=== PATIENT | female | born 1935 | race Caucasian/White ===

== ENCOUNTER → 2017-03-21 | Day surgery (SDC) | payer MEDICARE ==
[~2017-03-21] VITALS: Ht 61 cm; Wt 5.0 kg
[~2017-03-21] MED LIST: ACETAMINOPHEN 1000 MG/100 ML 0 ML IV ONE; AMLO10TA2 PO; BUPIVACAINE HCL PF 0.5% 30 ML VIAL ONE; BUPIVACAINE/EPINEPHRINE 0.5% 50 ML VIAL ONE; CHLORHEXIDINE GLUCONATE 2 % 1 PACK (2 CLOTHS) TOPICAL PRN; DO NOT ADM ANY ANTICOAGULANT DRUGS PRN; FAMOTIDINE 20 MG/2 ML VIAL ONE; GABA600T PO; GLYCOPYRROLATE 0.2 MG/ML VIAL IV ONE; GLYCOPYRROLATE 0.4 MG/2 ML VIAL IV ONE; HEPARIN SODIUM - IV 10,000 UNITS/10 ML VIAL ONE; HEPARIN SODIUM - SQ 10,000 UNITS/ML VIAL ONE; INSULIN HUMAN REGULAR 1,000 UNITS/10 ML VIAL SQ PRN; IOHEXOL 300 MG/ML 100 ML BTL (for Rad CT) OTHER ONE; IOHEXOL 350 MG/ML 100 ML BTL (for RAD DIAG) OTHER ONE; LACTATED RINGER'S 1000 ML IV PRN; LACTATED RINGER'S 500 ML INJ IV SCH; MAGN400T2 PO; MAGNESIUM SULFATE 1 GM/100 ML IV PRN; METOPROLOL TARTRATE 25 MG TAB PO PRN; MULT-365 PO; MULT10CA PO; NEOSTIGMINE 3 MG/3 ML SYR IV ONE; NORMOSOL R INJ 2,000 ML IV ONE; ONDANSETRON HCL 4 MG/2 ML VIAL IV PUSH ONE; ONDANSETRON HCL 4 MG/2 ML VIAL IV PUSH PRN; PHENYLEPH/NS 1000 MCG/10 ML SYR IV ONE; POTASSIUM CHLOR 20 MEQ 100 ML x 2 BAGS IV PRN; POTASSIUM CHLOR 20 MEQ/100 ML x 1 BAG IV PRN; POTASSIUM PHOSPHATE 21 MMOL/NS 250 ML IV PRN; POVIDONE IODINE 5% (ANTISEPSIS KIT) 4 APPLICATIONS EACH NARE PRN; PROPOFOL 200 MG/20 ML AMP IV ONE; PROTAMINE SULFATE 50 MG/5 ML VIAL ONE; REFRDRO EACH EYE; ROCURONIUM INJ 50 MG/5 ML VIAL IV ONE; SODIUM CHLORID 0.9% 500 ML IV PRN; ceFAZolin 1,000 MG/NS 100 ML IV SCH; ePHEDrine/NS 25 MG/5 ML SYR IV ONE
[2017-03-21 06:52] LABS: AUTOMATED NEUTROPHIL # 4.7 TH/MM3 (1.8-7.7); BASOPHIL # 0.1 TH/MM3 (0-0.2); BASOPHIL % 0.8 % (0.0-2.0); EOSINOPHIL # 0.3 TH/MM3 (0-0.4); EOSINOPHIL % 4.2 % (0.0-4.0); HEMATOCRIT 44.3 % (35.0-46.0); HEMO FLAGS DIFF FINAL; LYMPH % 21.1 % (9.0-44.0); LYMPHOCYTE # 1.5 TH/MM3 (1.0-4.8); MEAN CELL VOLUME 90.6 FL (80.0-100.0); MEAN CORPUSCULAR HEMOGLOBIN 30.7 PG (27.0-34.0); MEAN CORPUSCULAR HGB CONC 33.8 % (32.0-36.0); MONO % 9.8 % (0.0-8.0); NEUT % 64.1 % (16.0-70.0); PLATELET COUNT 226 TH/MM3 (150-450); RED BLOOD COUNT 4.89 MIL/MM3 (4.00-5.30); RED CELL DISTRIBUTION WIDTH 14.8 % (11.6-17.2); WHITE BLOOD COUNT 7.3 TH/MM3 (4.0-11.0)
[2017-03-21 07:01] LABS: PROTHROMBIN TIME - PATIENT 11.1 SEC (9.8-11.6)
[2017-03-21 07:08] LABS: POTASSIUM 4.3 MEQ/L (3.5-5.1)
[2017-03-21 13:00] VITALS: BP 116/63; PULSE 60; RESP 18; TEMP 97.7; O2SAT 92
--- NOTE | 2017-03-21 14:08 | EKG ---
Date Performed: 03/21/2017 Time Performed: 06:48:53 PTAGE: 81 years EKG: SINUS BRADYCARDIA BORDERLINE ECG Compared to prior tracing no significant change PREVIOUS TRACING : 01/06/2014 18.57 DOCTOR: Howadr Sosa Interpretating Date/Time 03/21/2017 14:06:14
--- NOTE | 2017-03-22 12:31 | MP ---
cc: JEANETTE PRASAD M.D., JEFFREY DATE OF SURGERY 03/21/2017 PREOPERATIVE DIAGNOSIS Critical right lower extremity ischemia. POSTOPERATIVE DIAGNOSIS Critical right lower extremity ischemia. OPERATIVE PROCEDURE Aortofemoral arteriogram. SURGEON Jeanette Prasad MD STERILE PROCESSING TECHNICIAN GAMA [place] ANESTHESIA Local MAC DESCRIPTION OF PROCEDURE With the patient in the supine position and under IV sedation, the abdomen, both groins and thighs were prepped with Betadine and draped in a sterile fashion. Following a protocol time-out, the skin and subcutaneous tissue surrounding the right common femoral access site was infiltrated with 0.5% Marcaine with epinephrine. Utilizing ultrasound guidance, a micro puncture access of the right common femoral artery was accomplished. The micro sheath was advanced over the Nitinol guidewire. An advantage guidewire was then navigated under fluoroscopic guidance into the sub renal aorta and the micro sheath exchanged for a 5-Bolivian hemostatic sheath. An Omni catheter was delivered into the subrenal aorta. 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 The common and external iliac arteries were concentrically calcified and moderately diseased throughout but devoid of any hemodynamic significant appearing inflow stenoses. The left common femoral artery was also widely patent into a profunda and SFA. Below the common femoral level on the right side, the SFA occluded at its origin and a robust right profunda collateralized and reconstituted the SFA at the adductor level. The popliteal, posterior tibial and peroneal were patent to the ankle, the anterior tibial occluded throughout. On the left side, the SFA and profunda were patent, although a focal high-grade stenosis was present within the SFA at the adductor level. The popliteal had three-vessel runoff to the left foot maintained. 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 The preoperative CT angiogram had suggested the right SFA was patent to the adductor level where a segmental occlusion was present. 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 This lady will require a right common femoral endarterectomy and at that time, options of either attempted at SFA endovascular reconstitution verses conventional in situ femoral-popliteal bypass. The right femoral sheath was removed and hemostasis achieved with compression. There were no operative complications. The patient returned to the CPU in stable condition having tolerated the procedure well. MD ORALIA Small/RANDY /8:28 AM /12:14 PM
== END | disposition home or self-care (01) ==
LOC: HSDC 05:54
PROVIDERS: ATTEND Surgery Vascular Surgery
DX: I70.211 Atherosclerosis of native arteries of extremities with intermittent claudication, right leg (principal); I70.92 Chronic total occlusion of artery of the extremities; I10 Essential (primary) hypertension; E78.5 Hyperlipidemia, unspecified; G62.9 Polyneuropathy, unspecified; J44.9 Chronic obstructive pulmonary disease, unspecified; F17.210 Nicotine dependence, cigarettes, uncomplicated; Z85.3 Personal history of malignant neoplasm of breast; Z87.442 Personal history of urinary calculi; Z79.51 Long term (current) use of inhaled steroids; Z79.899 Other long term (current) drug therapy
CPT/HCPCS: 01916; 36200; 75710; 80048; 85025; 85610; 85730; 93005; C1769; J0690; J1644; J2370; J2405; J2710; J3010; Q9967; J0131; J2720